=== PATIENT | female | born 1985 | race Caucasian/White ===

== ENCOUNTER 2016-12-21 11:18 | Day surgery (SDC) | payer OTHER ==
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
[~2016-12-21 11:18] MED LIST: Buffered Lidocaine 1% SYRIN* 3 ML/SYR SYRINGE INTRADERM ONE; Dexamethasone IV* 4 MG/ML 1 ML (4 MG) IV SLOW PU ONE; Dexamethasone IV* 4 MG/ML 1 ML (4 MG) ONE; Famotidine IV* 10 MG/ML 2 ML (20 mg) IV ONE; Famotidine IV* 10 MG/ML 2 ML (20 mg) ONE; Lidocaine 2% PF * 5 ML VIAL ONE; Midazolam* 1 MG/ML 5 ML VIAL (5 MG) ONE; Propofol* 10 MG/ML 20 ML BTL IV PUSH ONE; ceFAZolin 2 GM PREMIX(*) 2 GM/50 ML BAG IVPB ONE; fentaNYL* 50 MCG/ML 5 ML VIAL (250 MCG VIAL) ONE
[2016-12-21] MEDS ORDERED: Bupivacaine 0.5% SDV PF* 30 ML VIAL ONE (11:53)
[2016-12-21] MEDS ORDERED: Ketorolac INJ* 30 MG/ML 1 ML VIAL ONE (12:05)
[2016-12-21] MEDS ORDERED: Ondansetron INJ* 2 MG/ML VIAL ONE (12:14)
[2016-12-21] MEDS ORDERED: HYDROcodone/ACETAMIN 5-325 MG* 1 TAB PO PRN (12:23)
[2016-12-21] MEDS ORDERED: PROCHLORPERAZINE INJ 5 MG/ML 2 ML VIAL IV PRN (12:23)
[2016-12-21] MEDS ORDERED: oxyCODONE/Acetamin 5/325 MG* TAB PO PRN (12:23)
[2016-12-21] MEDS ORDERED: fentaNYL* 50 MCG/ML 2 ML VIAL (100 MCG VIAL) IV PRN (12:23)
[2016-12-21] MEDS ORDERED: PROCHLORPERAZINE INJ 5 MG/ML 2 ML VIAL ONE (13:31)
[2016-12-21] MEDS ORDERED: Acetaminophen TAB* 325 MG ONE (13:52)
[2016-12-21] MEDS ORDERED: traMADol TAB* 50 MG ONE (13:52)
[2016-12-21 14:09] VITALS: BP 105/64
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
== END 2016-12-21 14:16 | disposition home or self-care (01) ==
LOC: OREAST 11:18
PROVIDERS: ATTEND Orthopaedic Surgery
DX: S63.591A Other specified sprain of right wrist, initial encounter (principal); G58.8 Other specified mononeuropathies; V49.60XA Unspecified car occupant injured in collision with unspecified motor vehicles in traffic accident, initial encounter; W22.10XA Striking against or struck by unspecified automobile airbag, initial encounter; Y92.9 Unspecified place or not applicable
CPT/HCPCS: A9270-GY; J0690; J0780; J1100; J1885; J2250; J2405; J2704; J3010